=== PATIENT | male | born 1965 | race Caucasian/White ===

== ENCOUNTER → 2019-07-04 | Outpatient (CLI) | payer OTHER ==
--- NOTE | 2019-07-04 12:52 | CT ---
EXAMINATION TYPE: CT pelvis w con DATE OF EXAM: 07/04/2019 COMPARISON: None HISTORY: Prostate CA CT DLP: 805 mGycm CONTRAST: CT scan of the abdomen and pelvis is performed with Oral Contrast and with IV Contrast, patient injec jose with 100 mL of Isovue 300. FINDINGS: KIDNEYS/BLADDER: No hydronephrosis. No nephrolithiasis. No distinct renal mass. Urinary bladder g rossly unremarkable. BOWEL: Visualized bowel loops are of normal caliber. GENITAL ORGANS: Prostate gland is of normal size.. Prostate that planes are intact. There is no evid ence for adenopathy within the pelvis. Seminal vesicles are symmetric and free of mass lesion. No palma dence for free fluid within the pelvis. LYMPH NODES: No greater than 1cm abdominal or pelvic lymph nodes are appreciated. AORTA: No significant abnormality. OSSEOUS STRUCTURES: No significant abnormality is seen. OTHER: No significant additional abnormality is seen. IMPRESSION: 1. Prostate gland is of normal size.. Prostate that planes are intact. There is no evidence for adeno gina within the pelvis. Seminal vesicles are symmetric and free of mass lesion.
--- NOTE | 2019-07-04 14:40 | NM ---
EXAMINATION TYPE: NM bone scan whole body DATE OF EXAM: 07/04/2019 COMPARISON: CT pelvis 07/04/2019 HISTORY: Prostate carcinoma Delayed whole-body scanning was performed following the injection of 24 mCi Tc 99m MDP. Images acqui red 3 hours post injection. FINDINGS: Uptake in the mandible is likely due to periodontal disease. Uptake in the shoulders, wrists, ankles, knees, sternoclavicular joints joint is likely degenerative. There is a focus of increased uptake pr esent at the posterior right calvarium is mild, possible uptake at the convexity. Mildly uptake prese nt along the lateral right 10th rib and along the distal diaphyseal right femur. Soft tissue uptake i s normal. IMPRESSION: Indeterminate calvarial uptake, CT or MRI may be of benefit. Mild uptake laterally at the approximate 10th rib, distal diaphysis of the right femur, metastatic disease is not excluded.
== END | disposition home or self-care (01) ==
LOC: RADNMMAIN 10:25
PROVIDERS: ATTEND Urology
DX: C61 Malignant neoplasm of prostate (principal)
CPT/HCPCS: 72193; 78306; A9503; Q9967 ×2

== ENCOUNTER → 2019-07-29 | Outpatient (CLI) | payer OTHER ==
[2019-07-29 17:32] LABS: Basophils # (A) 0.1 k/uL (0-0.2); Basophils % (A) 1 %; Eosinophils # (A) 0.1 k/uL (0-0.7); Eosinophils % (A) 1 %; HCT 50.1 % (39.0-53.0); HGB 16.7 gm/dL (13.0-17.5); Lymphocytes # (A) 1.7 k/uL (1.0-4.8); Lymphocytes % (A) 25 %; MCH 28.8 pg (25.0-35.0); MCHC 33.4 g/dL (31.0-37.0); MCV 86.2 fL (80.0-100.0); Mean Platelet Volume 6.8; Monocytes # (A) 0.4 k/uL (0-1.0); Monocytes % (A) 6 %; Neutrophils # (A) 4.5 k/uL (1.3-7.7); Neutrophils % (A) 65 %; Platelet Count 257 k/uL (150-450); RBC 5.81 m/uL (4.30-5.90); RDW 12.9 % (11.5-15.5); WBC 6.9 k/uL (3.8-10.6)
[2019-07-29 17:43] LABS: African American GFR (CKD) >90 (>60 ml/min/1.73 sqM); Anion Gap 9 mmol/L; Blood Urea Nitrogen 15 mg/dL (9-20); Calcium 9.5 mg/dL (8.4-10.2); Carbon Dioxide 29 mmol/L (22-30); Chloride 102 mmol/L (98-107); Glucose 86 mg/dL (74-99); Non-African American GFR(CKD) >90 (>60 ml/min/1.73 sqM); Potassium 4.2 mmol/L (3.5-5.1); Sodium 140 mmol/L (137-145)
== END | disposition home or self-care (01) ==
LOC: LABPAT 16:34
PROVIDERS: ATTEND Urology
DX: Z01.818 Encounter for other preprocedural examination (principal); Z01.812 Encounter for preprocedural laboratory examination; C61 Malignant neoplasm of prostate; R53.83 Other fatigue
CPT/HCPCS: 36415; 80048; 85025; 93005

== ENCOUNTER 2019-08-05 11:01 | Day surgery (SDC) | payer OTHER ==
[2019-07-30 13:34] VITALS: BMI 27.1
--- NOTE | 2019-07-30 19:11 | P.GSHP ---
History of Present Illness H&P Date: 07/30/19 Chief Complaint: Prostate cancer The patient is a 53-year-old white male found to have an elevated PSA level of 19.0. His father had prostate cancer. SAADIA revealed right-sided asymmetrical enlargement. Prostate ultrasound revealed a prostate volume of 19 mL. 11 out of 12 biopsies showed [place] 7 adenocarcinoma. He underwent a metastatic evaluation, which consisted of a computed tomography scan of the pelvis and a bone scan. These studies showed no evidence of metastases. Alternative treatment options were reviewed in detail with the patient and his . He has elected to undergo a bilateral pelvic lymphadenectomy and robotic-assisted laparoscopic prostatectomy (RALP). Past Medical History Past Medical History: Cancer Additional Past Medical History / Comment(s): prostate cancer History of Any Multi-Drug Resistant Organisms: None Reported Additional Past Surgical History / Comment(s): neck surgery with injection Past Anesthesia/Blood Transfusion Reactions: No Reported Reaction Smoking Status: Never smoker - Past Family History Father Family Medical History: Cancer Medications and Allergies Home Medications Medication Instructions Recorded Confirmed Type No Known Home Medications 07/30/19 07/30/19 History Allergies Allergy/AdvReac Type Severity Reaction Status Date / Time No Known Allergies Allergy Verified 07/30/19 13:27 Surgical - Exam - General well developed, well nourished, no distress - Respiratory normal respiratory effort, clear to auscultation - Cardiovascular Rhythm: regular Abnormal Heart Sounds: no systolic murmur, no diastolic murmur, no rub, no S3 Gallop, no S4 Gallop, no click, no other - Abdomen Abdomen: soft, non tender, no guarding, no rigid, no rebound Hernia: none - Genitourinary normal penis with no external lesions, testicles non-tender - Rectum Rectum: normal sphincter tone, no masses, other (Prostate asymmetry, R>L) - Psychiatric oriented to time, oriented to person, oriented to place, speech is normal, memory intact Assessment and Plan (1) Malignant neoplasm of prostate Status: Acute Code(s): C61 - MALIGNANT NEOPLASM OF PROSTATE SNOMED Code(s): 310007341 Plan: RALP with bilateral pelvic lymphadenectomy. The procedure has been reviewed in detail with the patient and his . Potential risks were discussed, which include anesthesia, bleeding, infection, lymphocele, bowel injury, neurovascular injury, urinary leak, vesical neck contracture, and urethral stricture. The possible need to convert to an open procedure has been discussed. He understands that he is not a candidate for a nerve sparing procedure, and then a wider excision will be performed on the right side. He is aware that this will result in erectile dysfunction. The possibility of post prostatectomy urinary incontinence was discussed in detail, and he is aware that this may be permanent. He is also aware of the possible need for adjuvant therapy.
[~2019-08-05 11:01] MED LIST: DEXAMETHASONE SOD PHOSPHATE 10 MG/ML 1 ML VIAL IV ONE; LIDOCAINE 1% 20 ML VIAL (10MG/ML) FOR IV START INTRADERMA PRN; MIDAZOLAM 2 MG/2 ML VIAL IV PRN; ONDANSETRON 4 MG/2 ML VIAL IVP ONE; SCOPOLAMINE 1.5MG/72HR PATCH TRANSDERM ONE
[2019-08-05] MEDS: LACTATED RINGERS 1,000 ML IV SCH ×2 (11:39→21:42)
[2019-08-05] MEDS ORDERED: LIDOCAINE 1% INJ 10MG/ML (20 ML MDV) ONE (12:46)
[2019-08-05] MEDS ORDERED: SUCCINYLCHOLINE CHLORIDE 100 MG/5 ML SYR IV ONE (12:46)
[2019-08-05] MEDS ORDERED: GLYCOPYRROLATE 0.2 MG/ML 2 ML VIAL ONE (12:46)
[2019-08-05] MEDS ORDERED: HYDROmorphone (PF) 1 MG/ML ONE (12:46)
[2019-08-05] MEDS ORDERED: HEPARIN SODIUM,PORCINE 5,000 UNIT/ML 1 ML VIAL ONE (12:46)
[2019-08-05] MEDS ORDERED: ROCURONIUM BROMIDE 10 MG/ML 10 ML VIAL IV ONE (12:46)
[2019-08-05] MEDS ORDERED: PROPOFOL 10 MG/ML 20 ML VIAL IV ONE (12:46)
[2019-08-05] MEDS ORDERED: MIDAZOLAM 2 MG/2 ML VIAL ONE (12:46)
[2019-08-05] MEDS ORDERED: fentaNYL (PF) 50 MCG/ML 2 ML AMP ONE (12:46)
[2019-08-05] MEDS ORDERED: NEOSTIGMINE 1 MG/ML 10 ML VIAL ONE (12:46)
[2019-08-05] MEDS ORDERED: ONDANSETRON 4 MG/2 ML VIAL ONE (12:46)
[2019-08-05] MEDS ORDERED: KETAMINE 10 MG/ML 20 ML VIAL ONE (12:46)
[2019-08-05] MEDS ORDERED: BUPIVACAINE (PF) 0.25% 30 ML VIAL SQ ONE ×2 (13:19→17:15)
[2019-08-05] MEDS ORDERED: LACTATED RINGERS 1,000 ML IV ONE (13:26)
--- NOTE | 2019-08-05 17:19 | P.OP ---
Date of Procedure: 08/05/19 Preoperative Diagnosis: Adenocarcinoma of the prostate, clinical stage [id number] Postoperative Diagnosis: Same Procedure(s) Performed: Robotic-assisted laparoscopic prostatectomy (RALP) with bilateral pelvic lymphadenectomy Anesthesia: LAVERN Surgeon: Chava Hernandez Estimated Blood Loss (ml): 100 IV fluids (ml): 1,500 Pathology: other (Prostate, seminal vesicles, bilateral pelvic lymph nodes) Condition: stable Disposition: PACU Indications for Procedure: The patient is a 53-year-old white male found to have an elevated PSA level of 19.0. His father had prostate cancer. SAADIA revealed right-sided asymmetrical enlargement. Prostate ultrasound revealed a prostate volume of 19 mL. 11 out of 12 biopsies showed [place] 7 adenocarcinoma. He underwent a metastatic evaluation, which consisted of a computed tomography scan of the pelvis and a bone scan. These studies showed no evidence of metastases. Alternative treatment options were reviewed in detail with the patient and his . He has elected to undergo a bilateral pelvic lymphadenectomy and robotic-assisted laparoscopic prostatectomy (RALP). Operative Findings: No evidence of extraprostatic disease. Description of Procedure: The patient was taken in the operating room and placed in the dorsal lithotomy position, with his legs supported in Domenico stirrups. He was carefully positioned on a beanbag for stability. The abdomen and external genitalia were prepped and draped sterilely. A Park catheter was inserted. The Veress needle was passed through the anterior abdominal wall immediately cephalad to the umbilicus, and insufflation was performed to a pressure of 20 mm Hg. Once insufflation was performed, the Veress needle was removed and a supraumbilical incision was made, through which a 12 mm camera port was placed. Under camera guidance, 3 8 mm robotic ports were placed, 2 on the left and one on the right. An additional 12 mm port was placed on the right lateral side for use as an psych assistant port. A 5 mm port was placed to the right of the camera port for suction. The patient was placed in Trendelenburg position, and docking was then performed to the da Anthony system utilizing a 4-arm approach. The abdomen was examined. The sigmoid colon was mobilized out of the pelvis. Small bowel was adherent to the pelvis on the right side, requiring extensive lysis of adhesions to mobilize the bowel out of the pelvis. The peritoneum was incised lateral to the medial umbilical ligaments bilaterally, exposing the pubis. The peritoneum was then incised across the midline, allowing the bladder flap to be taken down. The endopelvic fascia was opened bilaterally, and muscular attachments from the urogenital diaphragm were swept away from the prostate. Bilateral pelvic lymphadenectomies were performed in the standard fashion. The peritoneal incisions were extended in a cephalad direction, and the vas deferens were divided bilaterally. Margins of dissection were the bifurcation of the iliac vessels proximally, the circumflex iliac vein distally, the external iliac artery laterally, and the obturator nerve medially. A combination of sharp and blunt dissection was used. Care was taken to avoid any neurovascular injury, and the use of monopolar electrocautery was avoided immediately adjacent to neurovascular structures. The lymphatic package was clipped distally. No enlarged lymph nodes were encountered. There were no complications. The vesical neck was incised transversely, down to the lumen. The Park catheter was brought out through the anterior vesical neck incision and was used for traction. The posterior aspect of the vesical neck was incised, such that the full-thickness of the vesical neck was divided. The anterior layer of the Denonvilliers fascia was incised, exposing the vas deferens. Each were isolated and divided. Next, each of the seminal vesicles were dissected away from adjacent tissues, and vascular attachments were cauterized and divided. The posterior leaf of Denonvilliers fascia was incised transversely, allowing entry into the plane between the prostate and rectum. With lateral spreading, this plane was developed down to the apex. This exposed the lateral vascular pedicles bilaterally. These were clipped and divided in an antegrade fashion, down to the apex. The plane of dissection was further from the prostate on the right side than the left, but a nerve-sparing procedure was not performed on either side. The remaining apical attachments were swept away from the prostate. The dorsal venous complex was incised, as well as periurethral tissue. At this point, only the urethra remained intact. This was transected immediately distal to the prostatic apex using cold scissors. The specimen was placed within a specimen bag. The dorsal venous complex was sutured using a V-Loc suture in a running fashion. The suture was passed through the periosteum of the pubis periurethral support. A second V-Loc suture was then used to place the Jakob stitch, incorporating the rhabdosphincter and the edge of Denonvilliers fascia. This allowed the bladder to be taken down to the urethra, leaving the vesical neck immediately adjacent to the urethra. The vesicourethral anastomosis was then performed using a V-Loc suture in a running fashion. After completing the anastomosis, an 18-[place] catheter was placed and approximately 150 mL of 0.9 normal saline were instilled into the bladder. No extravasation of irrigant from the vesicourethral anastomosis was noted. A small amount of oozing was noted from the vascular pedicles, so Surgicel was placed bilaterally. Tisseel was sprayed into the pelvis over the vascular pedicles, dorsal vein, and vesicourethral anastomosis. The patient was returned to the supine position. Undocking was performed, and the specimen bag sutures were passed through the camera port. After removing all the ports and allowing all of the CO2 to be released from the peritoneal cavity, the camera port incision was enlarged to allow removal of the surgical specimen. The fascia of this incision was then closed using 0 Vicryl suture in an interrupted [id number] fashion. Each of the skin incisions were then closed using 4-0 Monocryl suture in a subcuticular fashion. Marcaine was injected at each of the incision sites. Dermabond was applied to each incision. The Park catheter was connected to gravity drainage. All sponge and needle counts were correct. The patient tolerated the procedure well was taken to the recovery room in stable condition.
[2019-08-05] MEDS ORDERED: MAG HYDROX/AL HYDROX/SIMETH 30 ML CUP PO PRN (17:20)
[2019-08-05] MEDS ORDERED: ONDANSETRON 4 MG/2 ML VIAL IVP PRN (17:20)
[2019-08-05] MEDS ORDERED: ACETAMINOPHEN TAB 325 MG TAB PO PRN (17:20)
[2019-08-05] MEDS: HYDROmorphone 0.5 MG/0.5 ML SYRINGE IVP PRN ×4 (17:46→18:24)
[2019-08-05] MEDS: KETOROLAC 30 MG/ML 1 ML VIAL IVP PRN (17:53)
[2019-08-05] MEDS: HEPARIN SODIUM,PORCINE 5,000 UNIT/ML 1 ML VIAL SQ SCH (21:13)
[2019-08-05] MEDS: HYDROmorphone 1 MG/ML 1 ML SYRINGE IVP PRN (21:14)
[2019-08-05] MEDS: DEXTROSE 5%-0.45% NACL 1,000 ML IV SCH (22:38)
[2019-08-06] MEDS: HYDROmorphone 1 MG/ML 1 ML SYRINGE IVP PRN ×3 (01:07→05:29)
[2019-08-06] MEDS: DEXTROSE 5%-0.45% NACL 1,000 ML IV SCH (05:52)
[2019-08-06 07:30] VITALS: TEMP 98.3
[2019-08-06] MEDS: KETOROLAC 30 MG/ML 1 ML VIAL IVP PRN (08:26)
[2019-08-06] MEDS: HEPARIN SODIUM,PORCINE 5,000 UNIT/ML 1 ML VIAL SQ SCH (08:27)
[2019-08-06] MEDS ORDERED: HYDROcodone/APAP 5-325MG 1 EACH TAB PO PRN (12:38)
--- NOTE | 2019-08-06 12:40 | P.PN ---
Progress Note - Text Progress Note Date: 08/06/19 The patient reports mild incisional discomfort. His primary complaint is nausea. He had an episode of emesis earlier today, but is now hungry for lunch. He has ambulated to a limited degree. He denies shortness of breath and chest pain. He is afebrile with stable vital signs. The incisions are clean, dry, and intact. There is no penoscrotal edema. The Park catheter is draining blood-tinged urine. His condition is stable. [place] has been prescribed. He will be discharged home later today if the nausea subsides and he otherwise feels well.
[2019-08-06] MEDS: HYDROcodone/APAP 5-325MG 1 EACH TAB PO PRN ×2 (14:07→17:48)
[2019-08-06 15:12] VITALS: BP 132/77; PULSE 80
[2019-08-06 19:11] VITALS: RESP 15
--- NOTE | 2019-08-07 11:42 | P.DS ---
Providers Expected date of discharge: 08/06/19 Attending physician: Chava Hernandez Primary care physician: Tati Arzate - Discharge Diagnosis(es) (1) Malignant neoplasm of prostate Status: Acute Hospital Course: The patient underwent a robotic-assisted laparoscopic prostatectomy (RALP) with bilateral pelvic lymphadenectomy on the day of admission. There were no perioperative complications. He remained afebrile with stable vital signs. On the first postoperative day, he reported mild incisional discomfort. His primary complaint was nausea. He had an episode of emesis that morning but was subsequently able to tolerate diet. His incisions were clean, dry, and intact. He was ambulating without difficulty and was discharged home on the first postoperative day. Procedures: RALP with bilateral pelvic lymph node dissection in 08/05/2019. Patient Condition at Discharge: Good Plan - Discharge Summary Discharge Rx Participant: Yes New Discharge Prescriptions: New Ciprofloxacin HCl [Cipro] 250 mg PO Q12HR #6 tablet Hydrocodone/Acetaminophen [[place] 5-325] 1 - 2 each PO Q4HR PRN #6 tab PRN Reason: Pain Discharge Medication List Ciprofloxacin HCl [Cipro] 250 mg PO Q12HR #6 tablet 08/06/19 [Rx] Hydrocodone/Acetaminophen [[place] 5-325] 1 - 2 each PO Q4HR PRN #6 tab 08/06/19 [Rx] Follow up Appointment(s)/Referral(s): Chava Hernandez MD [STAFF PHYSICIAN] - 08/14/19 Patient Instructions/Handouts: Robot Assisted Laparoscopic Prostatectomy (DC) Activity/Diet/Wound Care/Special Instructions: Discharge home with Park catheter. Instruct patient to use overnight drainage bag as well as urinary leg bag. Okay to shower. Diet as tolerated. No lifting, driving, or strenuous activity. Reassure patient that abdominal wall ecchymosis and penoscrotal swelling are normal. Instruct patient to begin taking antibiotics one day prior to Park catheter removal. Discharge Disposition: HOME SELF-CARE
== END 2019-08-06 19:28 | disposition home or self-care (01) ==
LOC: OR 11:01 → 4SSUR 17:18 → OR 08-06 19:28
PROVIDERS: ATTEND Urology
DX: C61 Malignant neoplasm of prostate (principal); Z80.42 Family history of malignant neoplasm of prostate; Z98.890 Other specified postprocedural states
CPT/HCPCS: 86900; 86901; 88304; 86850; 88307; 88309; 55866; 38571; C1762; J2250; J1644 ×2; J1100; J2710; J0690; J2405 ×2; J2001; J3010; J1885 ×2; J1170 ×3; J0330; J2704

== ENCOUNTER → 2019-09-05 | Outpatient (CLI) | payer OTHER | END | disposition home or self-care (01) | LOC: LABWHC1 11:04 | PROVIDERS: ATTEND Urology | DX: C61 Malignant neoplasm of prostate (principal) | CPT/HCPCS: 36415; 84153 ==

== ENCOUNTER → 2019-10-03 | Outpatient (CLI) | payer OTHER | END | disposition home or self-care (01) | LOC: LABWHC1 12:49 | PROVIDERS: ATTEND Urology | DX: C61 Malignant neoplasm of prostate (principal) | CPT/HCPCS: 36415; 84153 ==

== ENCOUNTER → 2020-01-13 | Outpatient (CLI) | payer BC | END | disposition home or self-care (01) | LOC: LABWHC1 14:28 | PROVIDERS: ATTEND Urology | DX: C61 Malignant neoplasm of prostate (principal) | CPT/HCPCS: 36415; 84153 ==

== ENCOUNTER → 2020-04-15 | Outpatient (CLI) | payer BC | END | disposition home or self-care (01) | LOC: LABWHC1 09:07 | PROVIDERS: ATTEND Urology | DX: C61 Malignant neoplasm of prostate (principal) | CPT/HCPCS: 36415; 84153 ==

== ENCOUNTER → 2020-07-26 | Outpatient (CLI) | payer BC | END | disposition home or self-care (01) | LOC: LABWHC1 07:33 | PROVIDERS: ATTEND Urology | DX: C61 Malignant neoplasm of prostate (principal) | CPT/HCPCS: 36415; 84153 ==

== ENCOUNTER → 2020-10-26 | Outpatient (CLI) | payer BC ==
--- NOTE | 2020-10-26 18:05 | CT ---
EXAMINATION TYPE: CT abdomen pelvis w con DATE OF EXAM: 10/26/2020 COMPARISON: None HISTORY: LLQ pain, hx of prostate ca CT DLP: 1421 mGycm Automated exposure control for dose reduction was used. CONTRAST: Performed with IV Contrast, patient injected with 100 mL of Isovue 300. Images obtained from the diaphragm to the floor the pelvis with oral and IV contrast. Lung bases are clear. There is no pleural effusion. Heart size is normal. There is no pericardial eff usion. Liver spleen pancreas gallbladder stomach appear intact. The bile ducts are not dilated. There is no adrenal mass. Kidneys show satisfactory contrast opacification. There is no hydronephrosi s. Delayed images show normal renal excretion. There is no retroperitoneal adenopathy. Bladder disten ds smoothly. There is no free fluid in the pelvis. There is no inguinal hernia. There is minimal fat stranding seen on the lateral aspect of the lower descending colon. No significa nt wall thickening seen.. There is no ascites or free air. There is no bowel obstruction. Appendix is not seen. There is no sign of thickened appendix. Lumbar vertebra have normal alignment. There is no compression fracture. The bony pelvis is intact. H ip joints are intact. IMPRESSION: There is very minimal inflammatory changes in the pericolic fat around the lateral aspect of the lowe r descending colon. No evidence of any diverticular disease. Clinical significance is not clear. This could be minimal focal colitis. There is however no wall thickening.
== END | disposition home or self-care (01) ==
LOC: RADCTMAIN 15:17
PROVIDERS: ATTEND Nurse Practitioner
DX: R93.3 Abnormal findings on diagnostic imaging of other parts of digestive tract (principal); Z85.46 Personal history of malignant neoplasm of prostate
CPT/HCPCS: 74177; Q9967

== ENCOUNTER → 2021-01-24 | Outpatient (CLI) | payer BC ==
[2021-01-24 12:37] LABS: Prostate Specific Antigen <0.1 ng/mL (0.0-3.5)
== END | disposition home or self-care (01) ==
LOC: LABWHC1 07:51
PROVIDERS: ATTEND Urology
DX: C61 Malignant neoplasm of prostate (principal)
CPT/HCPCS: 36415; 84153; 84403

== ENCOUNTER → 2021-08-12 | Outpatient (CLI) | payer BC | END | disposition home or self-care (01) | LOC: LABWHC1 13:54 | PROVIDERS: ATTEND Urology | DX: C61 Malignant neoplasm of prostate (principal) | CPT/HCPCS: 36415; 84153 ==

== ENCOUNTER → 2023-11-02 | Outpatient (CLI) | payer BC | END | disposition home or self-care (01) | LOC: LABWHC1 07:21 | PROVIDERS: ATTEND Urology | DX: C61 Malignant neoplasm of prostate (principal) | CPT/HCPCS: 36415; 84153 ==

== ENCOUNTER → 2024-11-17 | Outpatient (CLI) | payer BC | END | disposition home or self-care (01) | LOC: LABWHC1 07:13 | PROVIDERS: ATTEND Urology | DX: C61 Malignant neoplasm of prostate (principal) | CPT/HCPCS: 36415; 84153 ==